=== PATIENT | male | born 1950 | race African-American/Black ===

== ENCOUNTER 2022-03-08 16:57 | Emergency (ER) | payer MEDICARE ==
[~2022-03-08] VITALS: Ht 162.6 cm; Wt 63.6 kg
[2022-03-08 17:15] VITALS: BP 174/93
--- NOTE | 2022-03-08 18:18 | PHYS DOC ---
Past Medical History Past Surgical History: Coronary Bypass Surgery Additional Past Surgical Histo: HERNIA, HEMMORHOID, BACK SURGERY General Adult EDM: Chief Complaint: BACK PAIN - NO INJURY HPI: HPI: Patient is a 71 year old male who presents with states for the last 4 days he has had lumbar bilateral pain that just radiates from left to right. He states over the last few days it is worsened. He states that he took Tylenol and some ibuprofen. He denies focal weakness, inability to ambulate, loss of bowel bladder, numbness or tingling, abdominal pain, injury, fall. He did have a back surgery for bulging disc in his lumbar spine back in 1981. Currently rating his pain a 9 out of 10 stating it sharp and aching. Denies any urinary symptoms or fever. Patient has a history of a cardiac bypass, hernia repair, hemorrhoid, back surgery. Review of Systems: Review of Systems: Constitutional: Denies fever or chills. [] Eyes: Denies change in visual acuity. [] HENT: Denies nasal congestion or sore throat. [] Respiratory: Denies cough or shortness of breath. [] Cardiovascular: Denies chest pain or edema. [] GI: Denies abdominal pain, nausea, vomiting, bloody stools or diarrhea. [] : Denies dysuria. [] Musculoskeletal: + back pain or denies joint pain. [] Integument: Denies rash. [] Neurologic: Denies headache, focal weakness or sensory changes. [] Endocrine: Denies polyuria or polydipsia. [] Lymphatic: Denies swollen glands. [] Psychiatric: Denies depression or anxiety. [] Heart Score: C/O Chest Pain: No Current Medications: Current Medications Medications (Trade) Dose Ordered Sig/[facility] Start Time Stop Time Status Last Admin Dose Admin Acetaminophen/ Hydrocodone Bitart (Lortab 5/325) 1 tab 1X ONCE 03/08/22 18:30 03/08/22 18:31 Dexamethasone (Decadron) 10 mg 1X ONCE 03/08/22 18:30 03/08/22 18:31 Lidocaine (Lidoderm) 1 patch 1X ONCE 03/08/22 18:30 03/08/22 18:31 Tizanidine HCl (Zanaflex) 4 mg 1X ONCE 03/08/22 18:30 03/08/22 18:31 Allergies: Allergies: Allergies Coded Allergies Type Severity Reaction Last Updated Verified No Known Drug Allergies 03/08/22 No Physical Exam: PE: Constitutional: Well developed, well nourished, no acute distress, non-toxic appearance. [] HENT: Normocephalic, atraumatic, bilateral external ears normal, oropharynx moist, no oral exudates, nose normal. [] Eyes: PERRLA, EOMI, conjunctiva normal, no discharge. [] Neck: Normal range of motion, no tenderness, supple, no stridor. [] Cardiovascular:Heart rate regular rhythm, no murmur [] Lungs & Thorax: Bilateral breath sounds clear to auscultation [] Abdomen: Bowel sounds normal, soft, no tenderness, no masses, no pulsatile masses. [] Skin: Warm, dry, no erythema, no rash. [] Back: No tenderness, no CVA tenderness. [] Extremities: Bilateral lower tenderness, no cyanosis, no clubbing, ROM intact, no edema. [] Neurologic: Alert and oriented X 3, normal motor function, normal sensory f unction, no focal deficits noted. [] Psychologic: Affect normal, judgement normal, mood normal. [] Current Patient Data: Vital Signs: Vital Signs Date Time Temp Pulse Resp B/P (MAP) Pulse Ox O2 Delivery O2 Flow Rate FiO2 03/08/22 17:15 99.2 70 20 174/93 (120) 99 Room Air 99.2 EKG: EKG: [] Radiology/Procedures: Radiology/Procedures: [] Impression: [facility] [address] [place], [place] [id number] IMAGING REPORT Signed PATIENT: NOE BRUMFIELD ACCOUNT: [id number] : 1950 LOCATION: ER AGE: 71 SEX: M EXAM STATUS: REG ER ORD. PHYSICIAN: MEGHAN PAT APRN REASON: PAIN, HX BULGING DISC PROCEDURE: CT LUMBAR SPINE WO CONTRAST CT lumbar spine without contrast History: Back pain Axial helical images of the lumbar spine were obtained without contrast. Axial, coronal and sagittal reconstruction was performed. Findings: There is straightening of the normal lumbar lordosis. The vertebral is otherwise aligned. There is complete loss of intervertebral disc material at L1-L2 and L2-L3 and significant changes in the endplates at these levels. Diffuse disc osteophyte ridges results in moderate central stenosis at T12-L1 and L1-L2 and L2-L3. There is significant hypertrophy of the facets on the left at L3-L4. There is marked narrowing of multiple neural foramen below the level of the exiting nerve roots bilaterally. There is no loss of vertebral body stature. Evaluation of the central canal is limited without contrast. There is a simple cyst in the upper pole of right kidney. There is an apparent 4 cm mass in the mid left kidney. Impression: 1. 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 2. 4 cm mass in the left kidney not well evaluated CT. End of impression PQRS Compliance Statement: One or more of the following individualized dose reduction techniques were utilized for this examination: 1. Automated exposure control 2. Adjustment of the mA and/or kV according to patient size 3. Use of iterative reconstruction technique Electronically signed by: Debbie Colon III, MD (03/08/2022 6:50 PM) [facility] DICTATED and SIGNED BY: DEBBIE COLON III, MD DATE: 03/08/221843 Course & Med Decision Making: Course & Med Decision Making Pertinent Labs and Imaging studies reviewed. (See chart for details) See HPI. Alert and oriented x4. Moving all extremities equally with equal xray tech and strengths. States he is in pain with just sitting in the wheelchair but it does worsen when he goes to try to stand up and walk. He walks with a cane. He is able to ambulate. There is tenderness to bilateral paraspinal lumbar. Patient receiving hydrocodone, Zanaflex and Decadron in the ED. No saddle anesthesia. CT lumbar shows that he has some chronic degenerative changes and stenosis. It also showed an incidental finding of a 4 cm kidney mass. I have told the patient about this and how he needs to follow-up with his primary care provider soon as possible. He denies any urinary symptoms or pain in the kidney area. Patient states he is feeling better and he is stable. [] Dragon Disclaimer: Drageli Disclaimer: This electronic medical record was generated, in whole or in part, using a voice recognition dictation system. Departure Departure Impression: Primary Impression: Lumbar pain Additional Impression: Kidney mass Disposition: HOME / SELF CARE / HOMELESS Condition: STABLE Referrals: NO PCP (PCP) ANGEL VILLANUEVA MD, VENU S MD Patient Instructions: Incidental Abnormal Radiological Finding, Spinal Stenosis Additional Instructions: Follow-up with your primary care provider or Dr. Villanueva for your back pain as soon as possible. Take medication as prescribed and with food. Remember some pain medications will make you fall and or fall asleep so you should not drive, drink alcohol or operate any kind of machinery while on this medication. Follow-up with your primary care for the incidental finding of the kidney mass. I will also refer you to a change control manager. Scripts Hydrocodone Bit/Acetaminophen (HYDROCODONE-APAP 5-325 ) 1 Tab Tablet 1 TAB PO PRN Q6HRS PRN for PAIN, #6 TAB 0 Refills Prov: MEGHAN PAT APRN 03/08/22 Lidocaine (Lidocaine PATCH ) 1 Each Adh..patch 1 EACH TP DAILY for FOR LOCAL PAIN, #5 PATCH REMOVE AFTER 12 HOURS Prov: MEGHAN PAT APRN 03/08/22 MEGHAN PAT APRN Mar 08, 2022 18:18
[2022-03-08] MEDS ORDERED: LIDOCAINE (700MG/PATCH) PATCH. TD ONE (18:30)
[2022-03-08] MEDS ORDERED: DEXAMETHASONE 4 MG TABLET PO ONE (18:30)
[2022-03-08] MEDS ORDERED: HYDROcodone/APAP 5/325MG 1 TAB TABLET PO ONE (18:30)
[2022-03-08] MEDS ORDERED: tiZANidine 4 MG TABLET. PO ONE (18:30)
--- NOTE | 2022-03-08 18:53 | RAD ---
CT lumbar spine without contrast History: Back pain Axial helical images of the lumbar spine were obtained without contrast. Axial, coronal and sagittal reconstruction was performed. Findings: There is straightening of the normal lumbar lordosis. The vertebral is otherwise aligned. There is co mplete loss of intervertebral disc material at L1-L2 and L2-L3 and significant changes in the endplat es at these levels. Diffuse disc osteophyte ridges results in moderate central stenosis at T12-L1 and L1-L2 and L2-L3. Th ere is significant hypertrophy of the facets on the left at L3-L4. There is marked narrowing of multi ple neural foramen below the level of the exiting nerve roots bilaterally. There is no loss of verteb ral body stature. Evaluation of the central canal is limited without contrast. There is a simple cyst in the upper pole of right kidney. There is an apparent 4 cm mass in the mid l eft kidney. Impression: 1. 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 2. 4 cm mass in the left kidney not well evaluated CT. End of impression PQRS Compliance Statement: One or more of the following individualized dose reduction techniques were utilized for this examinat ion: 1. Automated exposure control 2. Adjustment of the mA and/or kV according to patient size 3. Use of iterative reconstruction technique Electronically signed by: Suman Crowell III, MD (03/08/2022 6:50 PM) [facility]
[2022-03-08] MEDS ORDERED: LIDO700A21 TP (19:04)
[2022-03-08] MEDS ORDERED: HYDR-2761 PO (19:04)
== END 2022-03-08 19:15 | disposition home or self-care (01) ==
LOC: ER 16:57
DX: N28.89 Other specified disorders of kidney and ureter (principal); M54.50 Low back pain, unspecified; Z95.1 Presence of aortocoronary bypass graft
CPT/HCPCS: 72131; 99284-25